=== PATIENT | female | born 1970 | race Caucasian/White ===

== ENCOUNTER 2019-06-13 18:43 | Emergency (ER) | payer OTHER ==
[~2019-06-13] VITALS: Ht 162.6 cm; Wt 75.7 kg
[2019-06-13 19:07] VITALS: Ht 162.6 cm; Wt 75.7 kg
[2019-06-13 21:14] VITALS: BP 107/61
== END 2019-06-13 21:14 | disposition home or self-care (01) ==
LOC: ED 18:43
DX: J06.9 Acute upper respiratory infection, unspecified (principal); Z88.0 Allergy status to penicillin; Z85.3 Personal history of malignant neoplasm of breast; Z90.13 Acquired absence of bilateral breasts and nipples; Z85.43 Personal history of malignant neoplasm of ovary
CPT/HCPCS: 87804; J1885